=== PATIENT | female | born 1940 | race Caucasian/White ===

== ENCOUNTER 2021-04-27 13:49 | Day surgery (SDCO) | payer OTHER ==
[~2021-04-27] VITALS: Ht 162.6 cm; Wt 72.3 kg
[~2021-04-27 13:49] MED LIST: CARTIA XT120 MG PO; HUMULIN 70100 UNIT/1 SC; PRADAXA150 MG PO; PRILOSEC20 MG PO; TOPROL XL 50 MG50 MG PO; ZANTAC150 MG PO
[2021-04-27 15:40] LABS: BASOPHIL 0.5 % (0-2); EOSINOPHIL 0.2 % (0-7); HCT 52.9 % (37.0-47.0); HGB 18.1 g/dl (12.5-16.0); LYMPHOCYTE 14.6 % (15-48); MCH 30.9 pg (25.0-31.0); MCHC 34.2 g/dL (32.0-36.0); MCV 90.4 fL (78.0-100.0); MPV 8.8 fL (6.0-9.5); NEUTROPHIL 77.4 % (41-80); NRBC 0; PLT 157 K/uL (150-400); RBC 5.85 M/uL (4.20-5.40); WBC 11.1 K/uL (4.0-10.5)
[2021-04-27 15:57] LABS: ALBUMIN 3.6 g/dL (3.4-5.0); BILIRUBIN - TOTAL 1.4 mg/dL (0.2-1.0); BUN/CREAT RATIO (CALC) 15.6 RATIO; CREATININE 0.64 mg/dL (0.51-0.95); GLOBULIN (CALCULATION) 4.4 g/dL; POTASSIUM 4.2 mmol/L (3.5-5.1)
[2021-04-27 16:54] LABS: BILIRUBIN NEGATIVE (NEGATIVE); BLOOD 1+ Ery/uL (NEGATIVE); CLARITY CLEAR (CLEAR); COLOR YELLOW (YELLOW); GLUCOSE (U) 3+ mg/dL (NORMAL); LEUKOCYTES NEGATIVE Leu/uL (NEGATIVE); NITRITE NEGATIVE (NEGATIVE); PROTEIN NEGATIVE (NEGATIVE)
[2021-04-27 17:01] LABS: BACTERIA 4+
[2021-04-27] MEDS ORDERED: PRADAXA150 MG PO (19:45)
[2021-04-27] MEDS ORDERED: JARDIANCE10 MG PO (19:45)
[2021-04-27] MEDS ORDERED: AMARYL2 MG PO (19:46)
[2021-04-27] MEDS ORDERED: LOPRESSOR25 MG PO (19:48)
[2021-04-27] MEDS ORDERED: CARDIZEM CD120 MG PO (19:48)
[2021-04-27] MEDS ORDERED: PRILOSEC20 MG PO (19:49)
[2021-04-27] MEDS ORDERED: LOPRESSOR50 MG PO (19:50)
[2021-04-27] MEDS ORDERED: ARICEPT 5MG TABL5 MG PO (19:50)
[2021-04-27] MEDS ORDERED: LANTUS100 UNIT/1 SC (19:51)
[2021-04-28 06:05] LABS: BASOPHIL 0.4 % (0-2); EOSINOPHIL 0.1 % (0-7); HCT 51.5 % (37.0-47.0); HGB 17.5 g/dl (12.5-16.0); LYMPHOCYTE 16.9 % (15-48); MCV 91.2 fL (78.0-100.0); MONOCYTE 10.9 % (0-12); NEUTROPHIL 71.3 % (41-80); NRBC 0; PLT 164 K/uL (150-400); RBC 5.65 M/uL (4.20-5.40); RDW 14.3 % (11.5-14.0); WBC 14.1 K/uL (4.0-10.5)
[2021-04-28 06:22] LABS: BUN/CREAT RATIO (CALC) 15.4 RATIO; CREATININE 0.65 mg/dL (0.51-0.95); POTASSIUM 4.1 mmol/L (3.5-5.1)
--- NOTE | 2021-05-02 12:21 | NUR ---
05/02/21 Ms. Grant was living alone prior to admission. Her neighbor was preparing breakfast an administering medications. Her daughter, Zena Grant, prepared dinner and provided medications. [facility] was current and have been notified of admission. - Ms. Grant has a rw, cane, 3in1, s.chair, and emergency alert system. - Zena Grant, , has requested NH placement for short term rehab. Choices include: T[facility], [facility], and [facility]. [facility] bed, [facility] does not have a contract with insurance. [facility] has accepted patient and insurance approved. Zena Grant will transport. Report given to Dr. Palencia and Lida MS RN.
[2021-05-02] MEDS ORDERED: NORCO 5-325 TA1 EACH PO (12:40)
[2021-05-02] MEDS ORDERED: DULCOLAX5 MG PO (12:40)
[2021-05-02] MEDS ORDERED: MIRALAX17 GM PO (12:40)
[2021-05-02] MEDS ORDERED: ACETAMINOPHEN325 MG PO (12:40)
[2021-05-02] MEDS ORDERED: LOPRESSOR25 MG PO (12:40)
--- NOTE | 2021-05-02 16:58 | NUR ---
REPORT CALLED TO [facility] ([facility]). DAUGHTER AT BEDSIDE AWAITING FOR EMS.
== END 2021-05-02 17:32 ==
LOC: FER 13:49 → FMS 17:27
PROVIDERS: Emergency Medicine; ADMIT Allergy & Immunology Allergy
DX: S72.434A Nondisplaced fracture of medial condyle of right femur, initial encounter for closed fracture (principal); I48.0 Paroxysmal atrial fibrillation; E11.9 Type 2 diabetes mellitus without complications; N39.0 Urinary tract infection, site not specified; R29.6 Repeated falls; I48.91 Unspecified atrial fibrillation; I10 Essential (primary) hypertension; I25.10 Atherosclerotic heart disease of native coronary artery without angina pectoris; K21.9 Gastro-esophageal reflux disease without esophagitis; Z87.891 Personal history of nicotine dependence; Z79.4 Long term (current) use of insulin; Z79.899 Other long term (current) drug therapy; Z20.822 Contact with and (suspected) exposure to COVID-19; W19.XXXA Unspecified fall, initial encounter
CPT/HCPCS: 36415; 70450; 73560; 73700; 80048; 80053; 81001; 82550; 82962; 85025; 93005; 97161; 97166; 97530; 97530-GP; 97535; G0378; J0696; J7030; U0002

== ENCOUNTER 2021-07-27 07:59 | Emergency (ER) | payer OTHER ==
[~2021-07-27 07:59] MED LIST changes: +ACETAMINOPHEN325 MG PO; +AMARYL2 MG PO; +ARICEPT 5MG TABL5 MG PO; +CARDIZEM CD120 MG PO; +DULCOLAX5 MG PO; +JARDIANCE10 MG PO; +LANTUS100 UNIT/1 SC; +LOPRESSOR25 MG PO; +LOPRESSOR50 MG PO; +MIRALAX17 GM PO; +NORCO 5-325 TA1 EACH PO
[2021-07-27 09:21] LABS: BILIRUBIN NEGATIVE (NEGATIVE); BLOOD TRACE-LYSED Ery/uL (NEGATIVE); COLOR YELLOW (YELLOW); GLUCOSE (U) 3+ mg/dL (NORMAL); LEUKOCYTES 1+ Leu/uL (NEGATIVE); NITRITE POSITIVE (NEGATIVE); PROTEIN NEGATIVE (NEGATIVE); pH 6.5 (5.0-9.0)
[2021-07-27 09:23] LABS: CLARITY HAZY (CLEAR)
[2021-07-27 09:25] LABS: BASOPHIL 0.7 % (0-2); EOSINOPHIL 0.6 % (0-7); HCT 54.4 % (37.0-47.0); LYMPHOCYTE 19.6 % (15-48); MCH 31.3 pg (25.0-31.0); MCHC 33.1 g/dL (32.0-36.0); MCV 94.6 fL (78.0-100.0); MONOCYTE 7.3 % (0-12); MPV 8.5 fL (6.0-9.5); NEUTROPHIL 71.4 % (41-80); NRBC 0; PLT 226 K/uL (150-400); RBC 5.75 M/uL (4.20-5.40); RDW 14.8 % (11.5-14.0); WBC 11.7 K/uL (4.0-10.5)
[2021-07-27 09:31] LABS: BACTERIA 4+; URINARY RBC RARE
[2021-07-27 09:46] LABS: ALBUMIN 3.7 g/dL (3.4-5.0); BILIRUBIN - TOTAL 1.4 mg/dL (0.2-1.0); BUN/CREAT RATIO (CALC) 17.2 RATIO; CREATININE 0.64 mg/dL (0.51-0.95); GLOBULIN (CALCULATION) 4.4 g/dL; POTASSIUM 4.3 mmol/L (3.5-5.1); TOTAL PROTEIN 8.1 g/dL (6.4-8.2)
[2021-07-27] MEDS ORDERED: BACTRIM DS TAB1 EACH PO (10:14)
== END 2021-07-27 10:40 | disposition home or self-care (01) ==
LOC: FER 07:59
PROVIDERS: Emergency Medicine
DX: S40.012A Contusion of left shoulder, initial encounter (principal); N39.0 Urinary tract infection, site not specified; I48.91 Unspecified atrial fibrillation; E11.9 Type 2 diabetes mellitus without complications; I10 Essential (primary) hypertension; Z90.49 Acquired absence of other specified parts of digestive tract; X58.XXXA Exposure to other specified factors, initial encounter
CPT/HCPCS: 36415; 70450; 73030; 73060; 80053; 81001; 84484; 85025; 87076; 87088; 87186; 93005; J0696